=== PATIENT | female | born 1995 | race Caucasian/White ===

== ENCOUNTER → 2021-04-22 | Outpatient (CLI) | payer BC ==
[~2021-04-22] MED LIST: HYDR1TAB94 PO
== END | disposition home or self-care (01) ==
LOC: LAB 09:25 → LAB SHORT 09:25
DX: Z34.03 Encounter for supervision of normal first pregnancy, third trimester (principal)
CPT/HCPCS: 87081; 87150

== ENCOUNTER 2021-05-04 09:20 | Inpatient (IN) | payer BC ==
[~2021-05-04] VITALS: Ht 165.1 cm; Wt 85.0 kg
[2021-05-04 10:17] LABS: BASOPHILS ABSOLUTE AUTO 0.03 K/mm3 (0.00-0.23); BASOPHILS PERCENT AUTO 0 % (0-2); EOSINOPHILS PERCENT AUTO 0 % (0-6); Hematocrit 38.3 % (33.0-51.0); Hemoglobin 12.8 g/dL (11.5-16.0); IMMATURE GRAN ABSOLUTE AUTO 0.32 K/mm3 (0.00-0.10); IMMATURE GRAN PERCENT AUTO 4 % (0-1); LYMPHOCYTES ABSOLUTE AUTO 0.83 K/mm3 (0.84-5.20); LYMPHOCYTES PERCENT AUTO 10 % (21-46); MONOCYTES PERCENT AUTO 2 % (4-13); Mean Corpuscular HGB 29.6 pg (26.0-34.0); Mean Corpuscular HGB Conc 33.4 g/dL (31.5-36.5); Mean Corpuscular Volume 89 fL (80-100); Mean Platelet Volume 11.4 fL (9.1-12.4); NEUTROPHILS ABSOLUTE AUTO 7.38 K/mm3 (1.96-9.15); NEUTROPHILS PERCENT AUTO 84 % (41-73); Platelet Count 190 K/mm3 (150-400); RDW Standard Deviation 41.7 fL (35.1-46.3); Red Blood Cell Count 4.33 M/mm3 (3.80-5.20); White Blood Cell Count 8.76 K/mm3 (4.00-11.30)
[2021-05-04 11:00] LABS: SARS-Cov-2 (COVID-19) PCR, MMC POSITIVE (NEGATIVE)
--- NOTE | 2021-05-06 08:36 | NUR ---
PAS APPLIED AND INCENTIVE SPIROMETER TAUGHT ON, EDUCATED TO USE EVERY 1 HR FOR AT LEAST 5X/HR. VERBALIZES UNDERSTANDING. WILL START LOVENOX BID AND DEXAMETHASONE PER DR BAEZA ORDERS.
--- NOTE | 2021-05-06 09:56 | NUR ---
PT SLEEPING PRONE AND SATS MAINTAINING.
--- NOTE | 2021-05-06 14:04 | NUR ---
pt states she has gotten up and moved around a bit today. sitting up in bed with pas on. oxygenating well without 02 at this time. father of baby performing all baby care today thus far. discussing dc plan for baby as there is a dc order on baby. father is feeling unwell as well and feels like he may have a fever too. trying to weigh options and see if there are other family members able to help them care for baby or if we need to keep baby longer & perform care here at hospital.
--- NOTE | 2021-05-07 07:42 | NUR ---
ON ARRIVAL TO SHIFT, PT TRYING TO GET PAS ON BACK FROM BATHROOM AND O2 SATURATIONS WERE 85-86% FEBRILE AT 100.4. O2 TITRATED TO GET ABOVE 90%. CURRENTLY 92% ON 3 LITERS VIA NASAL CANNULA. PT BACK IN BED COUGHING, AND SWOLLEN IN THE FACE. STATES SHE FEELS BETTER THAN YESTERDAY.
--- NOTE | 2021-05-07 08:45 | NUR ---
CALLED NURSING BYPRODUCT ENGINEER INQUIRING ABOUT TRANSFER OF CARE TO MEDICAL FLOOR, [facility] STATES THERE ARE NO BEDS AVAILABLE AND THAT AT THIS TIME THEY ARE UNABLE TO FILL REQUEST. BUSINESS SUPPORT MANAGER IRVING HARRISON NOTIFIED AND AWARE, WELL DR. BAEZA. DR BAEZA STATES ITS OK FOR HER TO STAY DOWN ON FBP AT THIS TIME BUT IF SHE REGRESSES AND NEEDS HIGHER LEVEL OF CARE TO LET HER KNOW. PT STABLE ON 2-3 LITERS NASAL CANNULA. TEARFUL ABOUT IV START AND BEING AWAY FROM . REASSURANCE PROVIDED.
--- NOTE | 2021-05-07 10:00 | NUR ---
O2 TITRATED DOWN TO 2 L. SPO2 93-94%. [facility] CALLED FOR NEBULIZER TREATMENTS AND THEY ARE VERY BUSY UPSTAIRS AND WILL TRY TO COME DOWN WHEN THEY ARE ABLE TO.
--- NOTE | 2021-05-07 10:15 | NUR ---
[facility] CALLED AND INQUIRED ABOUT BREATHING TREATMENTS, UNABLE TO COME DOWN AT THIS TIME HOWEVER WILL COME DOWN WHEN THEY ARE ABLE.
--- NOTE | 2021-05-07 14:11 | NUR ---
trailing off o2, pt maintaing sp02 remaining above 90 at 94% on RA
--- NOTE | 2021-05-07 14:56 | NUR ---
RT SENT DOWN NEB TREATMENTS FOR PT THEY ARE UNABLE TO COME DOWN AT THIS TIME. PT TOLERATING NEB TREATMENT WELL SITTING UPRIGHT IN BED.
--- NOTE | 2021-05-07 17:12 | NUR ---
pt up in room with blinds open and looks and feels better than shes felt all day since the albuterol nebulizer treatment. o2 remains off and sp02 92% at this time.
--- NOTE | 2021-05-08 02:52 | NUR ---
PT BACK TO BED FROM BATHROOM AND SP02 WAS DOWN TO 85% ON RA. RN PLACED PT ON 1L 02 VIA NASAL CANNULA WHILE SITTING UPRIGHT IN THE BED AND OXYGEN SATURATION RETURNED TO 90-91%. BREATHING TREATMENT WAS STARTED SHORTLY AFTER PT WAS ABLE TO MAINTAIN SATS ABOVE 90%.
--- NOTE | 2021-05-08 03:41 | NUR ---
AFTER BREATHING TREATMENT, PT HAD COUGHING FIT AND HER O2SAT DROPPED TO 87%. 1L 02 WAS STARTED VIA NASAL CANNULA AND KEPT FOR APPROXIMATELY 30MIN BEFORE TITRATING OFF.
--- NOTE | 2021-05-08 08:53 | NUR ---
BIOX UP TO 94% WITH 2 L OF O2 PER NC, PATIENT DENIES BEING IN DISTRESS STATES SHE DOESNT NOTICE A DIFFERENCE WITH O2, BIOX DROPS TO 86-88% ON ROOMAIR, DR POLLARD UPDATED OF STATUS SHE WILL BE IN AT 1000 TO RE-ASSESS
--- NOTE | 2021-05-08 10:13 | NUR ---
BIOX SITTING WITH NO OXYGEN IS 86-88% WALKING WITH NO OXYGEN FOR 2 MIN BIOX 89-91% STARTS TO COUGH WITH SOB OXYGEN BACK ON 2 LITTERS BIOX 93%
--- NOTE | 2021-05-08 10:45 | NUR ---
DR POLLARD HERE TO SEE WINIFRED, FACESHEET AND CHART NOTE SENT TO [facility]
--- NOTE | 2021-05-08 11:55 | NUR ---
current plan to stay in hospital to get remaining doses of remdesivir
--- NOTE | 2021-05-08 16:13 | NUR ---
BIOX INCREASED TO 95-97% O2 DECREASED TO 1L NASAL CANULA
--- NOTE | 2021-05-08 16:16 | NUR ---
PATIENT STATES SHE IS FEELING A LITTLE BETTER THIS AFTERNOON
--- NOTE | 2021-05-08 18:20 | NUR ---
dr menchaca here for update on patient, patient resting encouraged to walk in room and shower offered but she states she is to tired
--- NOTE | 2021-05-08 20:30 | NUR ---
Patient is on 1L oxygen via NC. Oxygen saturation is 95-96%. Attempted to wean patient off of oxygen. Oxygen saturation dropped to 90% on room air. Put patient back on 1L NC. Oxygen saturation returned to 95%. Updated Dr. Urrutia. The plan is to attempt removal of oxygen at 0100.
--- NOTE | 2021-05-09 | NUR ---
Patient on 1L oxygen NC. Oxygen saturation is 98%. Discontinued oxygen for now to see how patient does without it. Oxygen saturation went down to 93% and maintained there. Will monitor patient's oxygen saturation on room air and start oxygen again if needed. Lungs are clear. Patient still declining breathing treatment.
--- NOTE | 2021-05-09 01:56 | NUR ---
Patient got up to the bathroom. Upon return to bed, she was coughing and her oxygen saturation was 81%. Nasal cannula replaced on 4L/min oxygen. Saturations took approximately 60 seconds to return to 90%. Lungs clear to auscultation, but patient is coughing and states she is short of breath. Breathing treatment administered at this time.
--- NOTE | 2021-05-09 02:20 | NUR ---
Oxygen reduced to 1L/min. Oxygen saturation maintaining at 92-93%. Patient states she is feeling better and no longer SOB. Cough has eased up.
--- NOTE | 2021-05-09 08:30 | NUR ---
pt currently in bed, reports feels ok, just laying there, but when she get up to the bathroom she feels like she got hit by a train, so tired and cant catch her breath very well. when just laying there has no pain, but with coughing or getting up to the bathroom she has pain 8-10/10, just depends on how hard she coughs. dr menchaca called at 0735 and reports will put in discharge order, will come see pt at 1200ish and we can dc home after 4th dose of ramidzever. pt currently not on oxygen biox of 92-94% just laying in bed.
--- NOTE | 2021-05-09 10:32 | NUR ---
pt biox 93-95%, pt aware can have breathing tx anytime, [facility] has made arrangement for [facility] to bring [facility] oxygen to [facility], and when pt is discharged home they will meet her there for her home oxygen. they will also set her up with a nebulizer and get her medications to her in 24-48 hours. we will send her home with 12 nebulizer treatments to use until her meds come in. to discharge home after she sees dr menchaca and get her 4th dose of ramedizer
--- NOTE | 2021-05-09 10:50 | NUR ---
[facility] brought pt oxygen to get her home, they are heading to her house now to set up her home oxygen and nebulizer machine and they will have a small portable oxygen setup for her to use at home for her appointments. pt reports her is at home and they can take it there.
--- NOTE | 2021-05-09 11:25 | NUR ---
Contacted by Nurse Marcelina Anthony regarding patient's care. Pt. needing O2 ordered through [facility] and Neb machine with albuteral ordered through [facility]. Very happy to assist with this. Ordered O2 with max need estimated to be 4LPM. Nebulizer ordered with 2.5 Albuteral treatment. Albuteral order rushed to be delivered to pt. tomorrow morning at home. Oxygen delivered to patient's room. [facility] in the process of delivering home set up and nebulizer to patient's home as well. Patient's parents are at home and will let [facility] staff in. Hospital sending pt. home with enough albuteral for 24 hours. No further needs at this time.
--- NOTE | 2021-05-09 13:48 | NUR ---
karly at [facility] took med scripts no refills lovenox 40mg sub q 1 daily decadron 6mg 1 day x 4 days albuterol 2.5/3ml nebulization unit, q4prn shorness breath/wheezing colace 100mg po bid prn constipation #30 guaifenesin sugar free liquid 100mg/5ml robitussin 100mg po q4 cough. pt already has own vitamins that she will continue to take. pt was shown this morning how to give her own lovenox injection, talked her thru the process, dr menchaca was ok with pt bringing used syringes to their office for disposal after the 10 days. pt to follow up in office in 2 weeks or call sooner if has any problems.
--- NOTE | 2021-05-09 14:42 | NUR ---
DC HOME IN A WHEELCHAIR, DISCUSSED WHAT QUARTINE MEANS, ENCOUARGED FOR PT TO GET A FINGER BIOX MONITOR AND TO CALL DOCTOR DAY OR NIGHT IF BIOX IS BELOW 90%, DR CUNNINGHAM INSTRUCTED PT ON WHEN TO USE OXYGEN, PT SENT HOME WITH OXYGEN, DIDNT PUT IT ON HER, SHE WAS 93-95% BEFORE DISCHARGING HOME. SHE HAD NO DESATING MOMENTS WITH HER BED BATH. SENT HOME WITH 6 ALBUTERAL NEBULIZERS PER RT UNTIL PT ABLE TO GET HERS, DISCUSSED THE LOVENOX INJECTIONS, PT REPORTS BEING ABLE TO DO THEM FROM THE INSTRUCTION THIS MORNING. RiGHT BRA[facility]N [facility] CALLED INTO [facility] THE PHARMACIST, PT PHARMACY CHOICE. PT DENIES ANY QUESTIONS, NO FOLLOW UP MADE PT IS 5 DAYS OUT, ENCOURAGED FOR PT TO CALL FOR HELP, PT HASNT REALLY PUMPED HERE, BUT REPORTS PLANS TO PUMP AT HOME, ENCOURAGED TO CALL AND TALK TO [facility] A IF NOT PRODUCING. PT WHEELCHAIRED OUT TO CAR WITH WAITING,
== END 2021-05-09 14:42 | disposition home or self-care (01) | DRG 805 ==
LOC: OBS 09:20 → BC 09:21 → OBS 09:27 → BC 09:30
PROVIDERS: ADMIT Obstetrics & Gynecology
PROC: 10E0XZZ Delivery of Products of Conception, External Approach (ICD-10-PCS; principal; 2021-05-04)
PROC: 0KQM0ZZ Repair Perineum Muscle, Open Approach (ICD-10-PCS; 2021-05-04)
PROC: 8E0ZXY6 Isolation (ICD-10-PCS; 2021-05-04)
PROC: 3E0333Z Introduction of Anti-inflammatory into Peripheral Vein, Percutaneous Approach (ICD-10-PCS; 2021-05-07)
PROC: XW033E5 Introduction of Remdesivir Anti-infective into Peripheral Vein, Percutaneous Approach, New Technology Group 5 (ICD-10-PCS; 2021-05-07)
DX: O98.52 Other viral diseases complicating childbirth (principal); U07.1 COVID-19; Z37.0 Single live birth; J96.01 Acute respiratory failure with hypoxia; J12.82 Pneumonia due to coronavirus disease 2019; O99.52 Diseases of the respiratory system complicating childbirth; Z3A.37 37 weeks gestation of pregnancy; O69.81X0 Labor and delivery complicated by cord around neck, without compression, not applicable or unspecified; Z90.49 Acquired absence of other specified parts of digestive tract; F41.9 Anxiety disorder, unspecified; O99.344 Other mental disorders complicating childbirth; O70.1 Second degree perineal laceration during delivery
CPT/HCPCS: 36415; 85025; 86850; 86900; 86901; A9270; J1650; J1885; J2590; J2930; J3010; J7120; U0004

== ENCOUNTER 2023-09-29 01:42 | Emergency (ER) | payer BC ==
[~2023-09-29] VITALS: Ht 165.1 cm; Wt 77.1 kg
[2023-09-29 02:16] VITALS: BP 149/117
[2023-09-29] MEDS ORDERED: Ibuprofen600 MG PO (05:08)
[2023-09-29] MEDS ORDERED: LIDO700A20 TOP (05:08)
[2023-09-29] MEDS ORDERED: ACET500 PO (05:08)
== END 2023-09-29 05:23 | disposition home or self-care (01) ==
LOC: ER 01:42
DX: S46.911A Strain of unspecified muscle, fascia and tendon at shoulder and upper arm level, right arm, initial encounter (principal); X50.0XXA Overexertion from strenuous movement or load, initial encounter
CPT/HCPCS: 71046; 73030; 99283-25; A9270